=== PATIENT | female | born 1940 | race Caucasian/White ===

== ENCOUNTER 2018-01-29 15:54 | Emergency (ER) | payer MEDICARE ==
[2018-01-29] MEDS ORDERED: NS 0.9% 1000 ML* 1,000 ML IV ONE (16:51)
[2018-01-29] MEDS ORDERED: Ondansetron INJ* 2 MG/ML VIAL IV ONE (16:51)
[2018-01-29 17:32] LABS: ABS Basophils 0.1 10^3/ul (0-0.2); ABS Eosinophils 0.2 10^3/ul (0-0.6); ABS Lymphocytes 1.7 10^3/ul (1.0-4.8); ABS Monocytes 0.9 10^3/ul (0-0.8); ABS Neutrophils 6.3 10^3/ul (1.5-7.7); ABS Nucleated RBC 0 10^3/ul; Eosinophil % 2.7 % (0-6); Hematocrit 38 % (35-47); Hemoglobin 13.2 g/dl (12.0-16.0); Mean Corpuscular HGB Conc 34 g/dl (31-36); Mean Corpuscular Hemoglobin 31 pg (27-31); Mean Corpuscular Volume 91 fL (80-97); Mean Platelet Volume 7.8 um3 (7.4-10.4); Nucleated Red Blood Cells % 0.1; Platelet Count 383 10^3/ul (150-450); Red Blood Count 4.21 10^6/ul (4.00-5.40); Red Cell Distribution Width 13 % (10.5-15); White Blood Count 9.2 10^3/ul (3.5-10.8)
[2018-01-29 17:39] LABS: INR 0.97 (0.77-1.02)
[2018-01-29 18:41] LABS: EGFR Non-African American 20.3 (>60)
[2018-01-29] MEDS ORDERED: oxyCODONE TAB* 5 MG TAB PO ONE (19:29)
--- NOTE | 2018-01-29 19:35 | ED ---
Nausea/Vomiting/Diarrhea HPI - HPI Summary HPI Summary: Patient complains of one to 2 episodes of N/V over the past 7 days. Nausea is intermittent, sometimes occurring after meals sometimes in the a.m. sometimes they tonight. Denies fever, cough, sore throat, CP, SOB, N diarrhea, abdominal pain, change in urine. Medical history is COPD, asthma, hypothyroid, A. fib. Patient on Xarelto. - History of Current Complaint Chief Complaint: EDNauseaVomitDiarrh Stated Complaint: NAUSEA/VOMITING Time Seen by Provider: 01/29/18 17:34 Hx Obtained From: Patient Onset/Duration: Gradual Onset Timing: Intermittent Episodes Lasting: Severity Initially: Moderate Severity Currently: Moderate Pain Intensity: 8 Pain Scale Used: 0-10 Numeric Aggravating Factor(s): Food Alleviating Factor(s): Nothing Nausea/Vomiting Presence: Nauseated, Vomiting Vomiting Frequency: Daily Vomiting Characteristics: Nonbilious Diarrhea Presence: No - Allergies/Home Medications Allergies/Adverse Reactions: Allergies Allergy/AdvReac Type Severity Reaction Status Date / Time indomethacin [From Indocin] Allergy Unknown Verified 01/29/18 16:20 Reaction Details latex Allergy Blisters Verified 01/29/18 16:20 lidocaine [From Xylocaine] Allergy Headache Verified 01/29/18 16:20 Penicillins Allergy Anaphylatic Verified 01/29/18 16:20 Shock phenobarbital Allergy Unknown Verified 01/29/18 16:20 Reaction Details procaine [From Novocain] Allergy Shortness Verified 01/29/18 16:20 of Breath Tetracyclines Allergy Unknown Verified 01/29/18 16:20 Reaction Details FRUCTOSE INTOLERANCE Allergy Unknown Uncoded 01/29/18 16:20 Reaction Details PMH/Surg Hx/FS Hx/Imm Hx Endocrine/Hematology History: Reports: Hx Anticoagulant Therapy, Hx Thyroid Disease Denies: Hx Diabetes Cardiovascular History: Reports: Hx Angina - OCCASIONAL, Hx Hypertension - ON MEDICATION FOR Denies: Hx Congestive Heart Failure, Hx Pacemaker/ICD Respiratory History: Reports: Hx Asthma, Hx Chronic Obstructive Pulmonary Disease (COPD), Other Respiratory Problems/Disorders - desaturation at times GI History: Reports: Other GI Disorders - gall bladder removal in her 20's History: Denies: Hx Renal Disease Musculoskeletal History: Reports: Hx Arthritis, Hx Back Problems, Other Musculoskeletal History - MS- diagnosed in 2013 Sensory History: Reports: Hx Cataracts, Hx Contacts or Glasses Denies: Hx Hearing Aid Opthamlomology History: Reports: Hx Cataracts, Hx Contacts or Glasses Neurological History: Reports: Hx Migraine - RARELY, Hx Nerve Disease - ?MS, Other Neuro Impairments/Disorders - PATIENT STATES LEGS SHOW SIGNS OF NEUROPATHY Psychiatric History: Reports: Hx Anxiety - FIBROMYALGIA, Hx Panic Disorder, Other Psychiatric Issues/Disorders - claustrophobia - Cancer History Hx Chemotherapy: No Hx Radiation Therapy: No - Surgical History Surgery Procedure, Year, and Place: GALLBLADDER REMOVED. APPENDECTOMY. HYSTERECTOMY. TEETH EXTRACTIONS. BILATERAL CATARACTS. FUSION 2008 C5-6&C6-7. L4-L5 LAMINECTOMY 2009. LASER SURGERY IN EYES FOR SCAR TISSUE. 2013 Left shoulder surgery repair with torn bicep Hx Anesthesia Reactions: No Infectious Disease History: No Infectious Disease History: Denies: Traveled Outside the [place] in Last 30 Days - Social History Alcohol Use: None Substance Use Type: Reports: None Substance Use Comment - Amount & Last Used: hydrocodone Smoking Status (MU): Former Smoker Review of Systems Constitutional: Negative Eyes: Negative ENT: Negative Cardiovascular: Negative Respiratory: Negative Positive: Vomiting, Nausea Genitourinary: Negative Musculoskeletal: Negative Skin: Negative Neurological: Negative Psychological: Normal All Other Systems Reviewed And Are Negative: Yes Physical Exam Triage Information Reviewed: Yes Vital Signs On Initial Exam: Initial Vitals Temp Pulse Resp BP Pulse Ox 97.3 F 70 18 115/86 92 01/29/18 16:05 01/29/18 16:05 01/29/18 16:05 01/29/18 16:05 01/29/18 16:05 Vital Signs Reviewed: Yes Appearance: Positive: Well-Appearing Skin: Positive: Warm Head/Face: Positive: Normal Head/Face Inspection Eyes: Positive: Normal Neck: Positive: Supple Respiratory/Lung Sounds: Positive: Clear to Auscultation Cardiovascular: Positive: Normal Abdomen Description: Positive: Nontender Musculoskeletal: Positive: Normal Neurological: Positive: Normal Psychiatric: Positive: Normal AVPU Assessment: Alert - Tyler Coma Scale Best Eye Response: 4 - Spontaneous Best Motor Response: 6 - Obeys Commands Best Verbal Response: 5 - Oriented Coma Scale Total: 15 Diagnostics - Vital Signs Vital Signs Temp Pulse Resp BP Pulse Ox 01/29/18 16:05 97.3 F 70 18 115/86 92 - Laboratory Lab Results: Lab Results 01/29/18 01/29/18 01/29/18 Range/Units 17:25 17:25 17:25 WBC 9.2 (3.5-10.8) 10^3/ul RBC 4.21 (4.00-5.40) 10^6/ul Hgb 13.2 (12.0-16.0) g/dl Hct 38 (35-47) % MCV 91 (80-97) fL MCH 31 (27-31) pg MCHC 34 (31-36) g/dl RDW 13 (10.5-15) % Plt Count 383 (150-450) 10^3/ul MPV 7.8 (7.4-10.4) um3 Neut % (Auto) 68.7 (38-83) % Lymph % (Auto) 18.0 L (25-47) % Polk % (Auto) 9.7 H (0-7) % Eos % (Auto) 2.7 (0-6) % Baso % (Auto) 0.9 (0-2) % Absolute Neuts (auto) 6.3 (1.5-7.7) 10^3/ul Absolute Lymphs (auto) 1.7 (1.0-4.8) 10^3/ul Absolute Monos (auto) 0.9 H (0-0.8) 10^3/ul Absolute Eos (auto) 0.2 (0-0.6) 10^3/ul Absolute Basos (auto) 0.1 (0-0.2) 10^3/ul Absolute Nucleated RBC 0 10^3/ul Nucleated RBC % 0.1 INR (Anticoag Therapy) 0.97 (0.77-1.02) Sodium 137 (135-145) mmol/L Potassium 3.3 L (3.5-5.0) mmol/L Chloride 96 L (101-111) mmol/L Carbon Dioxide 27 (22-32) mmol/L Anion Gap 14 H (2-11) mmol/L BUN 36 H (6-24) mg/dL Creatinine 2.33 H (0.51-0.95) mg/dL Est GFR ( Amer) 24.5 (>60) Est GFR (Non-Af Amer) 20.3 (>60) BUN/Creatinine Ratio 15.5 (8-20) Glucose 129 H (70-100) mg/dL Lactic Acid (0.5-2.0) mmol/L Calcium 10.7 H (8.6-10.3) mg/dL Total Bilirubin 0.30 (0.2-1.0) mg/dL AST 23 (13-39) U/L ALT 17 (7-52) U/L Alkaline Phosphatase 61 (34-104) U/L Troponin I 0.00 (<0.04) ng/mL C-Reactive Protein 7.50 (<8.01) mg/L B-Natriuretic Peptide ( - 100) pg/mL Total Protein 7.9 (6.4-8.9) g/dL Albumin 4.1 (3.2-5.2) g/dL Globulin 3.8 (2-4) g/dL Albumin/Globulin Ratio 1.1 (1-3) Lipase 21 (11.0-82.0) U/L 01/29/18 01/29/18 Range/Units 17:25 17:25 WBC (3.5-10.8) 10^3/ul RBC (4.00-5.40) 10^6/ul Hgb (12.0-16.0) g/dl Hct (35-47) % MCV (80-97) fL MCH (27-31) pg MCHC (31-36) g/dl RDW (10.5-15) % Plt Count (150-450) 10^3/ul MPV (7.4-10.4) um3 Neut % (Auto) (38-83) % Lymph % (Auto) (25-47) % Polk % (Auto) (0-7) % Eos % (Auto) (0-6) % Baso % (Auto) (0-2) % Absolute Neuts (auto) (1.5-7.7) 10^3/ul Absolute Lymphs (auto) (1.0-4.8) 10^3/ul Absolute Monos (auto) (0-0.8) 10^3/ul Absolute Eos (auto) (0-0.6) 10^3/ul Absolute Basos (auto) (0-0.2) 10^3/ul Absolute Nucleated RBC 10^3/ul Nucleated RBC % INR (Anticoag Therapy) (0.77-1.02) Sodium (135-145) mmol/L Potassium (3.5-5.0) mmol/L Chloride (101-111) mmol/L Carbon Dioxide (22-32) mmol/L Anion Gap (2-11) mmol/L BUN (6-24) mg/dL Creatinine (0.51-0.95) mg/dL Est GFR ( Amer) (>60) Est GFR (Non-Af Amer) (>60) BUN/Creatinine Ratio (8-20) Glucose (70-100) mg/dL Lactic Acid 1.0 (0.5-2.0) mmol/L Calcium (8.6-10.3) mg/dL Total Bilirubin (0.2-1.0) mg/dL AST (13-39) U/L ALT (7-52) U/L Alkaline Phosphatase (34-104) U/L Troponin I (<0.04) ng/mL C-Reactive Protein (<8.01) mg/L B-Natriuretic Peptide 84 ( - 100) pg/mL Total Protein (6.4-8.9) g/dL Albumin (3.2-5.2) g/dL Globulin (2-4) g/dL Albumin/Globulin Ratio (1-3) Lipase (11.0-82.0) U/L Result Diagrams: 01/29/18 17:25 01/29/18 17:25 Lab Statement: Any lab studies that have been ordered have been reviewed, and results considered in the medical decision making process. - EKG 1 Cardiac Rate: NL EKG Rhythm: Sinus Rhythm ST Segment: Non-Specific Ectopy: None EKG Comparison: No Significant Change Naus/Vom/Diarrhea Course/Dx - Course Course Of Treatment: Patient complains of one to 2 episodes of N/V over the past 7 days. Nausea is intermittent, sometimes occurring after meals sometimes in the a.m. sometimes they tonight. Denies fever, cough, sore throat, CP, SOB, N diarrhea, abdominal pain, change in urine. Medical history is COPD, asthma, hypothyroid, A. fib. Patient on Xarelto. Vital signs within normal limits. Labs unremarkable except for elevated creatinine 2.3, which is elevated from baseline. Last creatinine measurement 2 years ago. Elevated creatinine possibly due to persistent nausea vomiting.. CT abdomen and pelvis without contrast negative. Patient able to tolerate by mouth fluids. Vital signs within normal limits. Labs unremarkable. Patient nausea resolved with 4 mg Zofran IV and 1 L NS. Patient tolerated by mouth fluids. UA positive. Rx for Bactrim. Patient started here on Bactrim. Rx for Zofran - Differential Dx/Diagnosis Provider Diagnoses: Nausea vomiting. UTI Condition At Discharge: Stable Discharge - Sign-Out/Discharge Documenting (check all that apply): Patient Departure - Discharge Plan Condition: Stable Disposition: HOME Prescriptions: Ondansetron ODT TAB* [Zofran 4 MG Odt TAB*] 4 mg PO Q8H PRN 4 Days #14 tab.odt PRN Reason: Nausea Sulfamethox/Trimethoprim DS* [Bactrim DS 800/160 TAB*] 1 tab PO BID 10 Days #20 tab Patient Education Materials: Urinary Tract Infection in Women (ED), Urinary Tract Infection in Older Adults (ED) Referrals: Francesco Ryan MD [Primary Care Provider] - Additional Instructions: Take antibiotics as directed. Return to the ED for any new or worsening symptoms - Billing Disposition and Condition Condition: STABLE Disposition: Home
[2018-01-29 20:50] LABS: Urine Appearance Cloudy; Urine Blood Negative (Negative); Urine Color Yellow; Urine Ketones Negative (Negative); Urine Protein Negative (Negative); Urine Red Blood Cell 2+(6-10/hpf) (Absent); Urine Specific Gravity 1.011 (1.010-1.030); Urine Urobilinogen Negative (Negative); Urine White Blood Cell 2+(11-20/hpf) (Absent)
[2018-01-29] MEDS ORDERED: Sulfamethox/Trimethoprim DS 800/160* TAB PO ONE (21:01)
--- NOTE | 2018-01-29 22:48 | RAD ---
EXAM: CT Abdomen and Pelvis Without Intravenous Contrast CLINICAL HISTORY: 77 years old, female; Signs and symptoms; Nausea and vomiting; Additional info: N/v, elevated creatinine TECHNIQUE: Axial computed tomography images of the abdomen and pelvis without intravenous contrast. All CT scans at this facility use at least one of these dose optimization techniques: automated exposure control; mA and/or kV adjustment per patient size (includes targeted exams where dose is matched to clinical indication); or iterative reconstruction. Coronal and sagittal reformatted images were created and reviewed. COMPARISON: No relevant prior studies available. FINDINGS: Lung bases: Unremarkable. No mass. No consolidation. ABDOMEN: Liver: Unremarkable. Gallbladder and bile ducts: Unremarkable. No calcified stones or biliary dilation. Pancreas: Unremarkable. No mass Spleen: Unremarkable. Adrenals: Unremarkable. No mass. Kidneys and ureters: Unremarkable. No obstructing stones or hydronephrosis. Stomach and bowel: The sigmoid and left colon are redundant. Numerous diverticula are present in the sigmoid colon. No pericolonic inflammatory change to suggest diverticulitis. Mild wall thickening of the mid sigmoid colon on series 4 image 127 could represent a artifact from under distention. Comparison with prior studies would be helpful. The small bowel is diffusely fluid filled with distended loops of jejunum measuring up to 2.9 cm. No transition point identified. Findings are most suggestive of enteritis. PELVIS: Appendix: No findings to suggest acute appendicitis. Bladder: The urinary bladder is decompressed but contains no calcified stones. Reproductive: The uterus is been resected. ABDOMEN and PELVIS: Intraperitoneal space: Unremarkable. No free air or free fluid. Bones/joints: No acute fracture or aggressive osseous lesions Soft tissues: Unremarkable. Vasculature: There is calcified plaque of the abdominal aorta and bilateral iliac arteries. There is no aneurysm. Lymph nodes: Unremarkable. No enlarged lymph nodes. Other findings: . IMPRESSION: 1. Distended fluid filled small bowel most suggestive of enteritis. No bowel obstruction. 2. Diverticulosis coli. No convincing evidence of diverticulitis. Mild wall thickening of the mid sigmoid colon on series 4 image 127 could represent artifact from under distention. Comparison with prior studies would be helpful. 3. Other non-emergent findings as above.
[2018-01-29] MEDS ORDERED: Ondansetron ODT TAB* 4 MG PO ONE (22:57)
[2018-01-29] MEDS ORDERED: Ondansetron ODT TAB* 4 MG ONE (22:57)
[2018-01-29 23:24] VITALS: BP 145/78
== END 2018-01-29 23:23 | disposition home or self-care (01) ==
LOC: ED 15:54
DX: R11.2 Nausea with vomiting, unspecified (principal); N39.0 Urinary tract infection, site not specified; K57.30 Diverticulosis of large intestine without perforation or abscess without bleeding; I10 Essential (primary) hypertension; J44.9 Chronic obstructive pulmonary disease, unspecified; E03.9 Hypothyroidism, unspecified; I48.91 Unspecified atrial fibrillation; Z79.01 Long term (current) use of anticoagulants; Z79.899 Other long term (current) drug therapy; Z87.891 Personal history of nicotine dependence; Z88.8 Allergy status to other drugs, medicaments and biological substances; Z88.0 Allergy status to penicillin; Z88.3 Allergy status to other anti-infective agents
CPT/HCPCS: 36415; 74176; 80053; 81003; 81015; 83605; 83690; 83880; 84484; 85025; 85610; 86140; 87086; 93005; 96361; 96374; 99283; A9270-GY; J2405

== ENCOUNTER 2018-03-30 05:59 | Day surgery (SDC) | payer MEDICARE ==
[2018-03-30] MEDS ORDERED: Buffered Lidocaine 0.9% SYRIN* 5 ML/SYR SYRINGE INTRADERM ONE (06:00)
[2018-03-30] MEDS ORDERED: Dexamethasone IV* 4 MG/ML 1 ML (4 MG) IV SLOW PU ONE (06:00)
[2018-03-30] MEDS ORDERED: Famotidine IV* 10 MG/ML 2 ML (20 mg) IV ONE (06:00)
[2018-03-30] MEDS ORDERED: fentaNYL* 50 MCG/ML 2 ML VIAL (100 MCG VIAL) ONE ×2 (06:58→10:09)
[2018-03-30] MEDS ORDERED: Midazolam* 1 MG/ML 2 ML VIAL (2 MG) ONE (06:58)
[2018-03-30] MEDS ORDERED: Famotidine IV* 10 MG/ML 2 ML (20 mg) ONE (07:01)
[2018-03-30] MEDS ORDERED: Clindamycin 900 MG/D5W BAG(*) 900 MG/50 ML BAG IVPB ONE (07:02)
[2018-03-30] MEDS ORDERED: Dexamethasone IV* 4 MG/ML 1 ML (4 MG) ONE ×2 (07:02→07:16)
[2018-03-30] MEDS ORDERED: Lidocaine 1% INJ* 10 MG/ML 30 ML SDV ONE (07:43)
[2018-03-30] MEDS ORDERED: Bupivacaine 0.5% SDV PF* 30ML VIAL ONE (07:44)
[2018-03-30] MEDS ORDERED: Propofol* 10 MG/ML 20 ML BTL IV PUSH ONE (08:12)
[2018-03-30] MEDS ORDERED: fentaNYL* 50 MCG/ML 2 ML VIAL (100 MCG VIAL) IV PRN (08:22)
[2018-03-30] MEDS ORDERED: Acetaminophen TAB* 325 MG PO PRN (08:22)
[2018-03-30] MEDS ORDERED: Ondansetron INJ* 2 MG/ML VIAL IV PRN (08:22)
[2018-03-30] MEDS ORDERED: Naloxone* 0.4 MG/ML 1 ML VIAL IV PRN (08:22)
[2018-03-30] MEDS ORDERED: oxyCODONE/Acetamin 5/325 MG* TAB ONE ×2 (10:09→10:10)
[2018-03-30] MEDS: oxyCODONE/Acetamin 5/325 MG* TAB PO PRN ×2 (10:11→10:28)
[2018-03-30 10:20] VITALS: BP 144/86
--- NOTE | 2018-03-31 05:20 | OP ---
CC: Dr. Ryan * DATE OF OPERATION: 03/30/18 - [facility] DATE OF : 40 SURGEON: Bryan Chahal MD ANESTHESIOLOGIST: Dr. Dickerson. ANESTHESIA: Local MAC. PRE-OP DIAGNOSIS: Post laminectomy syndrome. POST-OP DIAGNOSIS: Post laminectomy syndrome. OPERATIVE PROCEDURE: Percutaneous dorsal column stimulator trial lead placement. INDICATIONS: The patient is a 77-year-old female, who has been seen in the [facility] for Pain Management and seemed to decide whether a dorsal column stimulator would be a treatment option when she was in [place] and that was going to be the next step in her pain treatment down there. The patient returned to [place] and was looking forward to having it done at our office. I had a chance to discuss the procedure in depth with her. I explained the risks, benefits, and alternatives to the procedure including the risks of bleeding, infection, nerve injury, postdural puncture headache, failure of the device to work, and she has been off the Xarelto for 4 days. The patient was also instructed to remain off Xarelto until the leads are pulled in 1 week. She was seen by her primary care doctor and cleared for surgery. SPECIMEN: None. ESTIMATED BLOOD LOSS: Less than 10 cc. FLUIDS: 1000 cc of LR. DESCRIPTION OF PROCEDURE: The patient was brought to the operative suite, placed prone on the fluoroscopy table. Her back was prepped and draped in the usual sterile fashion. Using fluoroscopy, I identified the T12-L1 interspace. I anesthetized the skin and subcutaneous tissues over that area with 2 cc of local anesthetic. Using an 11-blade, I made a skin kim and then using a 14- gauge Tuohy needle, I directed under fluoroscopy guidance to the T12-L1 interspace. The epidural space was identified using loss of resistance to air technique. There was no CSF, blood, or paresthesias noted. There was negative aspiration. I proceeded to pass a 16-contact [employer] [employer] lead into the epidural space and guided to the right of midline at T7 level. I then anesthetized the skin and subcutaneous tissues with 2 cc of local anesthetic to place the second lead. I then made a skin kim with an 11-blade, passed a 14- gauge epidural needle into the epidural space. Using loss of resistance to air technique, there was no CSF, blood, of paresthesias noted. There was negative aspiration. I proceeded to pass a 16-contact Infineon lead into the epidural space and guided it to the midline area with the tip of the lead at the top of the T7 vertebral body. We then commenced testing. The patient had good coverage in her pain areas. So, I decided to leave the leads where they were. AP and lateral fluoroscopic views were obtained, which showed good posterior placement in the epidural space. These images were saved. The stylet and needles were withdrawn and then the leads were anchored to the skin using the anchoring boot, 3-0 Prolene sutures and a silk suture to cinch the anchor to the lead. Sterile dressings were applied and the patient was brought to the recovery room in stable condition where her dorsal column stimulator will be programmed by the [employer] sales representative cash registers. She has a scheduled appointment to see me back next week for the lead pull. The patient again was instructed to remain off her Xarelto until the leads are pulled. [id number]/[facility] #: [id number] MTDManinder
== END 2018-03-30 10:47 | disposition home or self-care (01) ==
LOC: OR 05:59
PROVIDERS: ATTEND Anesthesiology Pain Medicine
DX: M96.1 Postlaminectomy syndrome, not elsewhere classified (principal); M54.16 Radiculopathy, lumbar region; I10 Essential (primary) hypertension; E03.9 Hypothyroidism, unspecified; E78.00 Pure hypercholesterolemia, unspecified; E78.5 Hyperlipidemia, unspecified; I48.91 Unspecified atrial fibrillation; M79.7 Fibromyalgia; Z79.01 Long term (current) use of anticoagulants; Z87.891 Personal history of nicotine dependence; J45.909 Unspecified asthma, uncomplicated; I25.10 Atherosclerotic heart disease of native coronary artery without angina pectoris
CPT/HCPCS: 77003; A9270-GY; C1897; J1100; J2250; J2704; J3010

== ENCOUNTER 2018-05-01 09:59 | Day surgery (SDC) | payer MEDICARE ==
[~2018-05-01 09:59] MED LIST: Bacitracin IV* 50,000 UNITS INJ ONE; Buffered Lidocaine 0.9% SYRIN* 5 ML/SYR SYRINGE INTRADERM ONE; Bupivacaine 0.25% SDV PF* 10 ML VIAL INJ ONE; Dexamethasone IV* 4 MG/ML 1 ML (4 MG) IV SLOW PU ONE; Famotidine IV* 10 MG/ML 2 ML (20 mg) IV ONE; Lactated Ringers 1000 ML Bag* 1,000 ML IV SCH; Lidocaine 1% INJ* 10 MG/ML 30 ML SDV ONE; Vancomycin(*) 1,000 MG VIAL ONE; ceFAZolin 1 GM VIAL(*) ONE
[2018-05-01] MEDS ORDERED: Famotidine IV* 10 MG/ML 2 ML (20 mg) ONE (10:20)
[2018-05-01] MEDS ORDERED: Dexamethasone IV* 4 MG/ML 1 ML (4 MG) ONE (10:20)
[2018-05-01] MEDS ORDERED: Clindamycin 900 MG/D5W BAG(*) 900 MG/50 ML BAG IVPB ONE (10:20)
[2018-05-01] MEDS ORDERED: Levalbuterol 0.63MG/3ML NEB* UNIT OF USE INH ONE ×2 (10:35→10:55)
[2018-05-01] MEDS ORDERED: fentaNYL* 50 MCG/ML 2 ML VIAL (100 MCG VIAL) ONE ×2 (11:00→13:45)
[2018-05-01] MEDS ORDERED: Lidocaine 1% INJ* 10 MG/ML 30 ML SDV ONE (11:01)
[2018-05-01] MEDS ORDERED: Vancomycin(*) 1,000 MG VIAL ONE (11:01)
[2018-05-01] MEDS ORDERED: Gentamicin ADULT (*) 40 MG/ML VIAL ONE (11:01)
[2018-05-01] MEDS ORDERED: Bacitracin IV* 50,000 UNITS INJ ONE (11:02)
[2018-05-01] MEDS ORDERED: ceFAZolin 1 GM VIAL(*) ONE (11:02)
[2018-05-01] MEDS ORDERED: Bupivacaine 0.25% SDV PF* 10 ML VIAL INJ ONE (11:02)
[2018-05-01] MEDS ORDERED: fentaNYL* 50 MCG/ML 2 ML VIAL (100 MCG VIAL) IV SLOW PU PRN (11:33)
[2018-05-01] MEDS ORDERED: fentaNYL* 50 MCG/ML 5 ML VIAL (250 MCG VIAL) ONE (11:51)
[2018-05-01] MEDS ORDERED: Midazolam* 1 MG/ML 2 ML VIAL (2 MG) ONE ×2 (11:51→13:18)
[2018-05-01] MEDS ORDERED: Ondansetron INJ* 2 MG/ML VIAL ONE (11:52)
[2018-05-01] MEDS ORDERED: Bupivacaine 0.25% EPI 200,000* 30 ML SDV ONE (12:08)
[2018-05-01] MEDS ORDERED: HYDROmorphone INJ1* 1 MG/ML SYRINGE IV PRN (12:10)
[2018-05-01] MEDS ORDERED: Ondansetron INJ* 2 MG/ML VIAL IV PRN (12:10)
[2018-05-01] MEDS ORDERED: fentaNYL* 50 MCG/ML 2 ML VIAL (100 MCG VIAL) IV PRN (12:10)
[2018-05-01] MEDS ORDERED: Naloxone* 0.4 MG/ML 1 ML VIAL IV PRN (12:10)
[2018-05-01] MEDS ORDERED: Bupivacaine 0.5% PF 10 ML VIAL INJ ONE (13:53)
[2018-05-01 15:08] VITALS: BP 130/80
[2018-05-01] MEDS ORDERED: oxyCODONE TAB* 5 MG TAB ONE ×2 (15:29→15:58)
--- NOTE | 2018-05-02 11:29 | OP ---
DATE OF OPERATION: 05/01/18 - [facility] DATE OF : 40 SURGEON: Bryan Chahal MD ANESTHESIOLOGIST: Dr. Higginbotham. ANESTHESIA: Local MAC. PRE-OP DIAGNOSIS: Post laminectomy syndrome. POST-OP DIAGNOSIS: Post laminectomy syndrome. OPERATIVE PROCEDURE: Permanent dorsal column stimulator, generator, and lead placement with a [employer] System. FLUIDS: 900. ESTIMATED BLOOD LOSS: Less than 50. INDICATIONS: The patient is a 77-year-old female who had a successful dorsal column stimulator trial last month. She is here today to have permanent dorsal column stimulator implant done. She has stopped her Xarelto for 4 days. I had chance to discuss with her the risks, benefits, and alternatives to therapy including the risks of bleeding, infection, and the failure of the device to work. After going over that in detail with the patient, informed consent was obtained for a permanent dorsal column stimulator implantation. DESCRIPTION OF PROCEDURE: The patient was brought to the operating suite, placed prone on the operative table. Her back was prepped and draped in the usual sterile fashion. Using fluoroscopy, I identified the spinous process of L1-2. I anesthetized the skin and subcutaneous tissue over the area with 1% lidocaine mixed with 0.25% bupivacaine. Then using a scalpel, I made a skin incision over the T2 spinous process and dissected down with electrocautery to the tips of the spinous process. Electrocautery was used for hemostasis. Then using a 14-gauge Coude epidural needle, I identified the epidural space at the T12-L1 interspace using loss of resistance to air technique. An 8-contact [employer] lead was then passed into the epidural space and guided to the right of midline at the mid point of T8. I then used another 14-gauge Coude two-way needle and identified the epidural space at the T12-L1 interspace using loss of resistance to air technique. There was no CSF, blood, or paresthesias noted with either needle placements into the epidural space. I then guided an 8-contact [employer] lead into the epidural space to lie parallel to the prior lead at the mid point of T8. A lateral fluoroscopic view was obtained which showed good posterior placement in the epidural space. We then tested leads and with some fine tuning of the lead placement, good coverage was obtained of the patient's pain areas. I then removed the stylets and needles and anchored the leads in place to the interspinous ligament using the [employer] [place] System and the Fixate Suture Device. The screws were then tightened till audible clicks were heard. Then I made a retention loop and tied that using a 0 silk suture. I then identified the area on the right flank where the patient requested the placement of the IPG be done. Using a 10-port, I magda out the placement area and then anesthetized the skin and subcutaneous tissues with mixture of 1% lidocaine and 0.25% bupivacaine. Then using a scalpel, I made a transverse incision and created a pocket for the IPG. I used Metzenbaum scissors and blunt dissection to create the pocket, then electrocautery was used to obtain hemostasis. I then packed the wound with antibiotic soaked sponges. I then irrigated all the wounds copiously with antibiotic irrigant. Hemostasis was confirmed. The leads were then passed using the lead passing tunneling device from the pocket to the midline incision. The leads were then passed into the pocket and attached to the generator and continuity was confirmed as the screws were tightened down until audible clicks were heard. The generator was then placed in the pocket and both wounds were closed using interrupted 2-0 Polysorb suture followed by a superficial 3-0 Polysorb suture on the midline incision, followed by a 3-0 Monocryl subcuticular closure on the midline incision. The generator pocket was closed with a layer of 2-0 Polysorb suture followed by running 3-0 Monocryl subcuticular closure. Dermabond was placed on both wounds. Steri-Strips applied and both wounds were infiltrated with 0.5% bupivacaine at the end of the procedure. The patient tolerated the procedure well, was brought to the recovery room in stable condition. [id number]/[facility] #: [id number] JOSTIN
== END 2018-05-01 16:18 | disposition home or self-care (01) ==
LOC: OR 09:59
PROVIDERS: ATTEND Anesthesiology Pain Medicine
DX: M96.1 Postlaminectomy syndrome, not elsewhere classified (principal); M54.16 Radiculopathy, lumbar region; I10 Essential (primary) hypertension; E03.9 Hypothyroidism, unspecified; E78.00 Pure hypercholesterolemia, unspecified; M79.7 Fibromyalgia; E78.5 Hyperlipidemia, unspecified; I73.9 Peripheral vascular disease, unspecified; I48.91 Unspecified atrial fibrillation; Z79.01 Long term (current) use of anticoagulants; J44.9 Chronic obstructive pulmonary disease, unspecified; Z87.891 Personal history of nicotine dependence
CPT/HCPCS: 76001; A9270-GY; C1713; C1778; C1820; J0690; J1100; J1580; J2250; J2405; J3010; J3370; J3490